=== PATIENT | male | born 1980 | race Hispanic/Latino ===

== ENCOUNTER 2021-02-04 12:47 | Emergency (ER) | payer OTHER ==
--- NOTE | 2021-02-04 14:17 | RAD REPORT ---
EXAM DESCRIPTION: CT - Head angio - 02/04/2021 2:07 pm CLINICAL HISTORY: HTN;Headache COMPARISON: Head Brain Wo Cont dated 02/04/2021; Neck Angio dated 02/04/2021 TECHNIQUE: CT angiography of the head was performed with MIPs. All CT scans are performed using dose optimization technique as appropriate and may include automated exposure control or mA/KV adjustment according to patient size. FINDINGS: No evidence of aneurysm is detected. No flow-limiting stenosis or vascular malformation id entified. Antegrade flow is seen in the vertebral arteries. The vertebral arteries are codominant. The visualized dural venous sinuses are patent. IMPRESSION: No significant flow abnormality is detected.
--- NOTE | 2021-02-04 14:18 | RAD REPORT ---
EXAM DESCRIPTION: CT - Neck Angio - 02/04/2021 2:07 pm CLINICAL HISTORY: HEADACHE COMPARISON: No comparisons TECHNIQUE: CT angiography of the neck vessels was performed with MIPs. All CT scans are performed using dose optimization technique as appropriate and may include automated exposure control or mA/KV adjustment according to patient size. FINDINGS: A left aortic arch is identified with normal three vessel configuration of the great vesse ls. No significant flow abnormality is seen of the common carotid bilaterally. No significant stenosis is identified involving the cervical segments of both internal carotid arteri es. Normal flow is seen within both vertebral arteries. IMPRESSION: No significant flow abnormality of the neck vessels is identified.
--- NOTE | 2021-02-04 14:19 | RAD REPORT ---
EXAM DESCRIPTION: CT - Head Brain Wo Cont - 02/04/2021 2:07 pm CLINICAL HISTORY: PAIN COMPARISON: Head angio dated 02/04/2021 TECHNIQUE: All CT scans are performed using dose optimization technique as appropriate and may inclu de automated exposure control or mA/KV adjustment according to patient size. FINDINGS: No intracranial hemorrhage, hydrocephalus or extra-axial fluid collection.No areas of brai n edema or evidence of midline shift. The paranasal sinuses and mastoids are clear. The calvarium is intact. IMPRESSION: No acute intracranial abnormality.
[2021-02-04] MEDS ORDERED: cloNIDine HCL 0.1 MG TAB ONE ×2 (14:42→17:27)
[2021-02-04] MEDS ORDERED: METOCLOPRAMIDE 10 MG/2mL INJ ONE (16:01)
[2021-02-04] MEDS ORDERED: NA CHLORIDE 0.9% 1,000 ML ONE (16:02)
[2021-02-04] MEDS ORDERED: KETOROLAC 30 MG/ML INJ ONE (16:02)
[2021-02-04] MEDS ORDERED: HYDRALAZINE HCL 20 MG/ML VIAL ONE (16:48)
--- NOTE | 2021-02-04 17:40 | EDPHYS ---
Physician Documentation [facility] Name: Misael Washington Age: 40 yrs Sex: Male : 1980 Arrival Date: 02/04/2021 Time: 12:50 Bed 9 Private MD: ED Physician Emil Cadet HPI: 02/04 14:12 This 40 yrs old Male presents to ER via Ambulatory with complaints of High rn Blood Pressure, 190/108. 14:12 The patient has elevated blood pressure and discovered this at home. Onset: The rn symptoms/episode began/occurred this morning. Modifying factors:. Modifying factors: The symptoms are aggravated by Nothing, The symptoms are alleviated by Nothing. Associated signs and symptoms: Pertinent positives: headache, Pertinent negatives: chest pain, dizziness, lightheadedness, nausea, visual changes, vomiting, weakness. Severity of symptoms: At its worst the blood pressure was moderate, in the emergency department the blood pressure is unchanged. The patient has not experienced similar symptoms in the past. The patient has not recently seen a physician. Patient reports woken up from sleep early this morning with headache, not getting any better. Reports history of migraines but today's headache felt a little different. Called friend who told him to check blood pressure, did check blood pressure, and was elevated. Has family history of hypertension but patient himself does not take any antihypertensives. Denies focal neurological complaints. Historical: - Allergies: 13:38 No Known Allergies; kg - Home Meds: 13:38 benign [Active]; kg - PMHx: 13:38 None; kg - Immunization history:: Adult Immunizations not up to date, Client reports having NOT received the Covid vaccine. - Social history:: Smoking status: Patient denies any tobacco usage or history of. Patient uses alcohol, occasionally. - Family history:: not pertinent. - Hospitalizations: : No recent hospitalization is reported. ROS: 14:12 Constitutional: Negative for fever, chills, and weight loss, Eyes: Negative for injury, rn pain, redness, and discharge, ENT: Negative for injury, pain, and discharge, Neck: Negative for injury, pain, and swelling, Cardiovascular: Negative for chest pain, palpitations, and edema, Respiratory: Negative for shortness of breath, cough, wheezing, and pleuritic chest pain, Abdomen/GI: Negative for abdominal pain, nausea, vomiting, diarrhea, and constipation, Back: Negative for injury and pain, : Negative for injury, bleeding, discharge, and swelling, MS/Extremity: Negative for injury and deformity, Skin: Negative for injury, rash, and discoloration, Neuro: Negative for weakness, numbness, tingling, and seizure. 14:12 All other systems are negative. Exam: 14:12 Constitutional: This is a well developed, well nourished patient who is awake, alert, rn and in no acute distress. Head/Face: Normocephalic, atraumatic. Eyes: Pupils equal round and reactive to light, extra-ocular motions intact. Lids and lashes normal. Conjunctiva and sclera are non-icteric and not injected. Cornea within normal limits. Periorbital areas with no swelling, redness, or edema. Neck: Trachea midline, Supple, full range of motion without nuchal rigidity, or vertebral point tenderness. No Meningismus. Cardiovascular: Regular rate and rhythm. No pulse deficits. Respiratory: No increased work of breathing, no retractions or nasal flaring. Skin: Warm, dry MS/ Extremity: Pulses equal, no cyanosis. Neuro: Awake and alert, GCS 15, oriented to person, place, time, and situation. Cranial nerves II-XII grossly intact. Motor strength 5/5 in all extremities. Sensory grossly intact. Cerebellar exam normal. Vital Signs: 13:29 BP 179 / 117; Pulse 68; Resp 18; Temp 98.1(TE); Pulse Ox 100% on R/A; Weight 74.84 kg kg (R); Height 5 ft. 2 in. (157.48 cm) (R); Pain 6/10; 15:14 BP 166 / 100; iw 16:15 BP 199 / 117; Pulse 74; iw 17:32 BP 163 / 99; Pulse 70; Resp 16; Pulse Ox 99% on R/A; iw 13:29 Body Mass Index 30.18 (74.84 kg, 157.48 cm) kg MDM: 13:42 Patient medically screened. rn 17:37 Differential diagnosis: hypertensive crisis, Malignant HTN, intracerebral hemorrhage. rn Differential diagnosis: aneurysm. Data reviewed: vital signs, nurses notes. Counseling: I had a detailed discussion with the patient and/or guardian regarding: the historical points, exam findings, and any diagnostic results supporting the discharge/admit diagnosis, radiology results, the need for outpatient follow up, to return to the emergency department if symptoms worsen or persist or if there are any questions or concerns that arise at home. Response to treatment: the patient's symptoms have mildly improved after treatment, and as a result, I will discharge patient. Special discussion: I have referred the patient to see his PCP for further evaluation of high blood pressure. I discussed with the patient/guardian in detail that at this point there is no indication for admission to the hospital. It is understood, however, that if the symptoms persist or worsen the patient needs to return immediately for re-evaluation. Based on the history and exam findings, there is no indication for further emergent testing or inpatient evaluation. I discussed with the patient/guardian the need to see the primary care provider for further evaluation of the symptoms. ED course: Patient with some improvement in blood pressure, CT head and CT angios negative without acute findings. Normal neurological exam. Will DC home with antihypertensive. Patient very anxious and worked up, is having trouble ignoring monitor and blood pressure is rising accordingly. Recommend daily blood pressure journal and PCP follow-up for further medication management.. 02/04 13:41 Order name: CT Head Brain wo Cont; Complete Time: 14:20 kg 02/04 13:54 Order name: CT Head Angio; Complete Time: 14:20 rn 02/04 13:54 Order name: CT Neck Angio; Complete Time: 14:20 rn 02/04 13:41 Order name: EKG - Nurse/Tech; Complete Time: 15:14 kg 02/04 13:55 Order name: EKG; Complete Time: 13:55 rn 02/04 13:55 Order name: EKG - Nurse/Tech; Complete Time: 15:14 rn 02/04 14:34 Order name: Cardiac monitoring; Complete Time: 15:14 rn Administered Medications: 14:23 Drug: cloNIDine 0.1 mg Route: PO; iw 15:51 Drug: Ketorolac 15 mg Route: IVP; Site: left antecubital; iw 15:51 Drug: Reglan (metoCLOPramide) 5 mg Route: IVP; Site: left antecubital; iw 15:51 Drug: NS 0.9% 1000 ml Route: IV; Rate: 1000 ml; Site: left antecubital; iw 16:28 Drug: hydrALAZINE 5 mg Route: IVP; Site: right antecubital; iw 17:08 Drug: cloNIDine 0.1 mg Route: PO; iw Disposition Summary: 02/04/21 17:39 Discharge Ordered Location: Home rn Problem: new rn Symptoms: have improved rn Condition: Stable rn Diagnosis - Headache rn - Hypertension rn Followup: rn - With: Private Physician - When: As needed - Reason: Recheck today's complaints, Re-evaluation by your physician Discharge Instructions: - Discharge Summary Sheet rn - General Headache Without Cause rn - Hypertension, Adult rn Forms: - Medication Reconciliation Form rn - Thank You Letter rn - Antibiotic computer science intern - Prescription Opioid Use rn Prescriptions: - Hydrochlorothiazide 50 mg Oral Tablet - take 1 tablet by ORAL route once daily; 30 tablet; Refills: 0, Product rn Selection Permitted Signatures: Dispatcher [employer] Shruthi Underwood, RN RN iw Emil Cadet MD MD rn Graham, Kristen, RN RN kg Corrections: (The following items were deleted from the chart) 13:40 13:38 Home Meds: None; kg kg
--- NOTE | 2021-02-04 17:40 | ER ---
Nurse's Notes [facility] Name: Misael Washington Age: 40 yrs Sex: Male : 1980 Arrival Date: 02/04/2021 Time: 12:50 Bed 9 Private MD: Diagnosis: Headache;Hypertension Presentation: 02/04 13:29 Chief complaint: Patient states: Headache starting at 0400 woke him up out of his kg sleep, feeling jittery, tightness in chest. Coronavirus screen: Client denies travel out of the [place] in the last 14 days. At this time, unable to obtain information related to travel outside the [place] Ebola Screen: Patient negative for fever greater than or equal to 101.5 degrees Fahrenheit, and additional compatible Ebola Virus Disease symptoms Patient denies exposure to infectious person. Patient denies travel to an Ebola-affected area in the 21 days before illness onset. Initial Sepsis Screen: Does the patient meet any 2 criteria? No. Patient's initial sepsis screen is negative. Does the patient have a suspected source of infection? No. Patient's initial sepsis screen is negative. Risk Assessment: Do you want to hurt yourself or someone else? Patient reports no desire to harm self or others. Onset of symptoms was February 04, 2021 at 04:00. 13:29 Method Of Arrival: Ambulatory kg 13:29 Acuity: VEDA 3 kg Triage Assessment: 13:38 General: Appears in no apparent distress. Behavior is calm, cooperative, appropriate kg for age, quiet. Pain: Complains of pain in face. Historical: - Allergies: 13:38 No Known Allergies; kg - Home Meds: 13:38 benign [Active]; kg - PMHx: 13:38 None; kg - Immunization history:: Adult Immunizations not up to date, Client reports having NOT received the Covid vaccine. - Social history:: Smoking status: Patient denies any tobacco usage or history of. Patient uses alcohol, occasionally. - Family history:: not pertinent. - Hospitalizations: : No recent hospitalization is reported. Screenin:28 Abuse screen: Denies threats or abuse. Denies injuries from another. Tuberculosis iw screening: No symptoms or risk factors identified. Assessment: 16:28 Reassessment: Patient appears in no apparent distress at this time. Patient and/or iw family updated on plan of care and expected duration. Pain level reassessed. Patient is alert, oriented x 3, equal unlabored respirations, skin warm/dry/pink. BP still 190's systolic. Vital Signs: 13:29 BP 179 / 117; Pulse 68; Resp 18; Temp 98.1(TE); Pulse Ox 100% on R/A; Weight 74.84 kg kg (R); Height 5 ft. 2 in. (157.48 cm) (R); Pain 6/10; 15:14 BP 166 / 100; iw 16:15 BP 199 / 117; Pulse 74; iw 17:32 BP 163 / 99; Pulse 70; Resp 16; Pulse Ox 99% on R/A; iw 13:29 Body Mass Index 30.18 (74.84 kg, 157.48 cm) kg ED Course: 12:50 Patient arrived in ED. mr 13:38 Triage completed. kg 13:38 Arm band placed on right wrist. kg 13:42 Emil Cadet MD is Attending Physician. rn 14:07 CT Head Brain wo Cont In Process Unspecified. EDMS 14:07 CT Head Angio In Process Unspecified. EDMS 14:07 CT Neck Angio In Process Unspecified. EDMS 14:23 Shruthi Lnua RN is Primary Nurse. iw 17:32 No provider procedures requiring assistance completed. iw Administered Medications: 14:23 Drug: cloNIDine 0.1 mg Route: PO; iw 15:51 Drug: Ketorolac 15 mg Route: IVP; Site: left antecubital; iw 15:51 Drug: Reglan (metoCLOPramide) 5 mg Route: IVP; Site: left antecubital; iw 15:51 Drug: NS 0.9% 1000 ml Route: IV; Rate: 1000 ml; Site: left antecubital; iw 16:28 Drug: hydrALAZINE 5 mg Route: IVP; Site: right antecubital; iw 17:08 Drug: cloNIDine 0.1 mg Route: PO; iw Outcome: 17:39 Discharge ordered by . rn 17:51 Patient left the ED. iw Signatures: Dispatcher [employer] [facility] Sara Green Shruthi Luna RN RN iw Emil Cadet MD MD rn Graham, Kristen, RN RN kg Corrections: (The following items were deleted from the chart) 13:40 13:38 Home Meds: None; kg kg
[2021-02-04 17:57] VITALS: TEMP 98.1
[2021-02-04 18:02] VITALS: BP 163/99; O2SAT 99
--- NOTE | 2021-02-05 07:57 | EKG ---
Test Date: 2021-02-04 Test Time: 13:35:54 Income Tax Advisor: REYES MEASUREMENT RESULTS: Intervals: Rate: 66 IN: 150 QRSD: 96 QT: 398 QTc: 417 [place]: P: 43 IN: 150 QRS: 65 T: 52 INTERPRETIVE STATEMENTS: Normal sinus rhythm Nonspecific ST and T wave abnormality Abnormal ECG No previous ECG available for comparison Electronically Signed On 02-05-21 07:56:05 CDT by Juan Carlos Lisa
== END 2021-02-04 17:51 | disposition home or self-care (01) ==
LOC: ER 12:47
DX: I10 Essential (primary) hypertension (principal)
CPT/HCPCS: 93005; 70450; 70496; 70498; 99283; Q9967; J0360; J2765; J7030